=== PATIENT | female | born 1995 | race Caucasian/White ===

== ENCOUNTER 2019-06-21 10:30 | Outpatient (RCR) | payer OTHER, SELFPAY ==
[2019-06-21 12:49] LABS: Hematocrit 34.4 % (37.0-47.0); Hemoglobin 11.1 g/dL (12.0-15.0)
[2019-06-21 13:06] LABS: Glucose 1 Hour PP 50gm Dose 106 mg/dL
[2019-06-21 13:48] LABS: HIV 1/2 Ab P24 Ag Result Negative (Negative)
[2019-06-21] MEDS: RHO(D) IMMUNE GLOBULIN 300 MCG SYRINGE IM (17:28)
[2019-06-22 08:16] LABS: Rapid Plasma Reagin Non-Reactive (NonReactive)
== END 2019-09-19 23:59 | disposition home or self-care (01) ==
LOC: ANHLAB 10:30
PROVIDERS: Visit Provider Obstetrics & Gynecology
DX: Z36.89 Encounter for other specified antenatal screening (principal); Z29.13 Encounter for prophylactic Rho(D) immune globulin; O36.0990 Maternal care for other rhesus isoimmunization, unspecified trimester, not applicable or unspecified; Z3A.00 Weeks of gestation of pregnancy not specified
CPT/HCPCS: 36415; 36430; 82947; 85014; 85018; 86592; 86703; 90384; 96372; G0432; J2790

== ENCOUNTER 2019-09-03 06:12 | Inpatient (IN) | payer OTHER, SELFPAY ==
[2019-09-03] VITALS (85 sets, daily range): BP systolic 75–158; BP diastolic 33–129; PULSE 56–191; RESP 16–18; TEMP 36.3–37.5; O2SAT 94–100; BMI 29.5
[2019-09-03 07:15] LABS: Basophils Percent Auto 0.2 % (0.2-1.2); Eosinophils Absolute Auto 0.1 K/mm3 (0-0.3); Eosinophils Percent Auto 0.7 % (0-4.4); Hematocrit 31.7 % (37.0-47.0); Immature Granulocyte Absolute 0.04 K/mm3 (0.00-0.031); Immature Granulocyte Percent A 0.4 % (0-0.5); Lymphocytes Absolute Auto 1.62 K/mm3 (0.9-3.2); Mean Corpuscular HGB Conc 31.5 g/dl (32-36); Mean Corpuscular Hemoglobin 26.4 pg (26-34); Mean Corpuscular Volume 83.6 fl (80-100); Mean Platelet Volume 10.7 fl (7.4-10.4); Monocytes Absolute Auto 0.6 K/mm3 (0.1-0.6); Monocytes Percent Auto 6.5 % (2.6-8.5); Neutrophils Absolute Auto 6.7 K/mm3 (1.3-6.7); Neutrophils Percent Auto 74.2 % (45.5-73.1); Platelet Count Result 311 k/mm3 (150-375); Red Blood Count 3.79 M/mm3 (4.2-5.4); Red Cell Distribution Width 13.2 % (11.5-14.5)
[2019-09-03] MEDS: LACTATED RINGERS 1,000 ML 125 ML IV CONT ×2 (07:20→11:57)
--- NOTE | 2019-09-03 07:32 | LDADM ---
This patient, Jennifer Yanez, was admitted to Labor/Delivery/Recovery 104 on 09/03/19 at 06:12. Plans for labor, pain management and were discussed with patient. Patient/family oriented to hospital policies and general routines including ID bracelet, bed and alarms, visiting hours, pain management, procedures, bathroom and other care routines, personal items, smoking policy, room service/diet and guest tray routines, infant security routines, and visiting hours. Patient/Family are encouraged to report perceived risks to care and to ask questions if they do not understand what they are told or what they should do. See OBIX for further documentation.
--- NOTE | 2019-09-03 07:49 | WPDOBADMIT ---
Obstetrics - Admit Note Admission Note: 23 y/o @ 39w2d here for elective induction of labor. VSS Contractions irregular FHR category 1 Cervix 2/50/-2 AROM small amount of clear odorless fluid Epidural if desired Anticipate record reviewed. No pertinent additions to the history and/or any subsequent changes in the physical findings that are not consistent with the expected course of the were found. Additions to the history and/or subsequent changes in the physical findings follow. None.
[2019-09-03 10:13] LABS: Rapid Plasma Reagin Non-Reactive (NonReactive)
--- NOTE | 2019-09-03 11:52 | P.PNAN_ITS ---
Anes - Eval Pre Procedure Procedure: Labor epidural Date/Time: 09/03/19 11:52 Pre Op Diagnosis: Induction Patient Data Age: 23 Gender: F Height: 1.75 m Weight: 90.5 kg Last Vital Signs Temp 36.3 C L 09/03/19 10:00 Pulse 124 H 09/03/19 11:01 BP 131/83 09/03/19 11:01 Allergies Allergy/AdvReac Type Severity Reaction Status Date / Time No Known Allergies Allergy Unknown Unverified 08/21/19 13:27 Home Medications Medication Instructions Recorded Confirmed Type PNV cmb#95-ferrous fumarate-FA 1 tablet PO DAILY 08/21/19 08/21/19 History [] escitalopram oxalate 5 mg PO DAILY 08/21/19 08/21/19 History Laboratory Tests 09/03/19 09/03/19 09/03/19 07:06 07:06 07:06 WBC 9.0 K/mm3 K/mm3 (4.5-10.0) RBC 3.79 M/mm3 L M/mm3 (4.2-5.4) Hgb 10.0 g/dL L g/dL (12.0-15.0) Hct 31.7 % L % (37.0-47.0) MCV 83.6 fl fl (80-100) MCH 26.4 pg pg (26-34) MCHC 31.5 g/dl L g/dl (32-36) RDW 13.2 % % (11.5-14.5) Plt Count 311 k/mm3 k/mm3 (150-375) MPV 10.7 fl H fl (7.4-10.4) Immature Gran % (Auto) 0.4 % % (0-0.5) Neut % (Auto) 74.2 % H % (45.5-73.1) Lymph % (Auto) 18.0 % L % (18.3-44.2) Rowan % (Auto) 6.5 % % (2.6-8.5) Eos % (Auto) 0.7 % % (0-4.4) Baso % (Auto) 0.2 % % (0.2-1.2) Lymph # (Auto) 1.62 K/mm3 K/mm3 (0.9-3.2) Rowan # (Auto) 0.6 K/mm3 K/mm3 (0.1-0.6) Eos # (Auto) 0.1 K/mm3 K/mm3 (0-0.3) Baso # (Auto) 0.0 K/mm3 K/mm3 (0.0-0.1) Abs Immat Gran (auto) 0.04 K/mm3 H K/mm3 (0.00-0.031) Absolute Neuts (auto) 6.7 K/mm3 K/mm3 (1.3-6.7) Absolute Nucleated RBC 0.0 K/mm3 K/mm3 (0.0-0.012) Nucleated RBC % 0.0 % % (0.0-0.2) RPR Non-reactive (NonReactive) Blood Type O Negative Antibody Screen Negative Patient hx anesthesia problems: none Family hx anesthesia problems: none [facility] Family History Family History (Updated 08/21/19 @ 13:32 by Marcela Uribe RN) Other Cancer Grandparent Cancer Brain cancer Sibling Endometriosis Social History Social History Smoking status: Never smoker Substance use: never Spiritual care concerns: No Exam Day of Procedure 09/03/19 11:52
--- NOTE | 2019-09-03 15:08 | P.PCNOB_ITS ---
OB - Delivery Note Procedure Delivery date: 09/03/19 Intrapartal events: None Induction method: AROM and per pitocin protocol Delivery monitor: external FHT Route of delivery: Episiotomy description: None Laceration description: None Estimated blood loss (mL): 20 Anesthesia type: Epidural [place] Baby Date of : 09/03/19 Time of : 14:54 Weeks of gestation at delivery: 39 presentation: vertex position: Left Occiput Anterior Placenta delivery description: Spontaneous cord vessel description: 3 Vessels, Nuchal Cord and Reduced
[2019-09-03] MEDS: IBUPROFEN 600 MG TABLET PO ×2 (17:00→23:45)
[2019-09-03] MEDS: WITCH HAZEL 40 PADS 1 PAD TOPICAL (17:00)
[2019-09-03] MEDS: BENZOCAINE 20% AER SPR (*SP) 56 GM CAN 1 SPRAY TOPICAL (17:01)
--- NOTE | 2019-09-03 17:05 | PC.NURSE ---
Patient transferred to post room #284 via wheelchair. Support person present. Oriented to unit, room, information board, rooming in, admission packet and security measures. Patient verbalizes understanding.
[2019-09-03] MEDS: ACETAMINOPHEN 325 MG TABLET 650 MG PO (19:36)
[2019-09-04] MEDS: ACETAMINOPHEN 325 MG TABLET 650 MG PO ×2 (04:38→12:17)
[2019-09-04 06:11] LABS: Hematocrit 27.6 % (37.0-47.0); Hemoglobin 8.7 g/dL (12.0-15.0)
--- NOTE | 2019-09-04 08:01 | WPDANLDPN2 ---
Anes-Prog Note L&D Date/Time: 09/04/19 08:01 Comfortable throughout: labor and delivery Neuraxial method: epidural Epidural/Spinal procedure site: clean & non-tender Neuro status: Neuro function grossly intact. Cardiovascular status: normal Respiratory status: normal Airway patency: baseline Mental status: baseline Post-Op hydration status: normal Vital Signs: Last Vital Signs Temp 98.0 F 09/03/19 19:30 Pulse 105 H 09/03/19 19:30 Resp 16 09/03/19 19:30 BP 114/68 09/03/19 19:30 Pulse Ox 99 09/03/19 18:55 Post-procedural complaints: none Patient feedback: Patient satisfied with anesthetic care.
--- NOTE | 2019-09-04 08:09 | PM.OBPNVD ---
OB - PN: Subj Subjective Date/time seen: 09/04/19 08:09 Patient comments: no complaints, pain well controlled, incisional pain, tolerating diet and flatus present OB - PN: Obj Data Labs CBC & Chem 7: 09/04/19 04:31 Labs: Laboratory Results - last 24 hr 09/03/19 09/03/19 09/04/19 07:06 07:06 04:31 Hgb 8.7 L Hct 27.6 L RPR Non-reactive Blood Type O Negative Antibody Screen Negative 09/04/19 04:31 Hgb Hct RPR Blood Type O Negative Antibody Screen OB - PN A/P Plan day: 1 Plan: routine care Comments: No problems, routine care Time Spent With Patient Time: Total time spent is greater than 50% in coordination of care (as documented) at patient's floor/unit and/or counseling patient: Exam Const: General: comfortable, no acute distress and alert Resp: Effort & Inspection: normal respiratory effort Auscultation: no crackles, no rales and no rhonchi Cardio: Rate: regular rate Heart sounds: no click, no murmurs and no rubs GI: Inspection: non-distended GI Palp: No Tenderness to palpation present (GI) Auscultation: normal bowel sounds Other: Incision - CDI Extrem: General: normal to inspection, no pedal edema and no calf tenderness
[2019-09-04 08:15] VITALS: BP 122/72; PULSE 68; RESP 16; TEMP 37.1; O2SAT 100
[2019-09-04] MEDS: POLYSACCHARIDE IRON COMPLEX 150 MG CAPSULE PO (09:22)
[2019-09-04] MEDS: DOCUSATE SODIUM 100 MG CAPSULE PO (09:22)
[2019-09-04] MEDS: IBUPROFEN 600 MG TABLET PO (09:23)
[2019-09-04] MEDS: RHO(D) IMMUNE GLOBULIN 300 MCG SYRINGE IM (11:11)
--- NOTE | 2019-09-04 11:42 | PC.NURSE ---
Patient instructed on viewing the discharge video Mother & Baby Care, The First Two Weeks . Patient was given the opportunity and encouraged to ask questions. Patient verbalized understanding of information shared and has been given the mother/baby guide for home reference.
--- NOTE | 2019-09-04 13:29 | P.DS_ITS ---
OB - DS: Summary OB Procedures : None OB Procedures Intrapartum: Spontaneous Vag Delivery OB Procedures: : None Time Spent with Patient Time attestation: Total time spent providing and/or coordinating discharge services: DS: Data Data Completed and Pending Labs on day of discharge: Labs from last 24 hours 09/04/19 09/04/19 04:31 04:31 Hgb 8.7 L Hct 27.6 L Blood Type O Negative Antibody Screen Negative Screen Negative Baby's Blood Type B pos Baby's ACOSTA Negative Doses of RhIg Required 1 Discharge Plan Discharge Discharging Clinician: Lisa Alavres Patient Disposition: Home, Self-Care Activity: pelvic rest Diet: regular Discharge Instructions: Education: Mom and Baby Guide Given to: Mother Follow-Up: Call your delivering provider's office for an appointment to be seen in: 4 Weeks Mom and baby [facility] the follow-up appointment. Appointment Date/Time: September 05, 2019 at 9:00 am What to expect at your follow-up visit: Physical Assessment Call [phone] if you are unable to keep your appointment time. BREAST CARE: 1. Wear a snug supportive bra. 2. For engorgement discomfort: Bottle Feeding: A. May apply ice packs EPISIOTOMY/PERINEAL CARE: 1. Until bleeding stops, use your alma bottle after urinating 2. Change your pad frequently throughout the day 3. No tub baths until seen by your physician - You may shower ACTIVITY: 1. Rest as much as possible. 2. Do not exercise or lift anything heavier than your baby (such as laundry or other children.) 3. Avoid stairs or driving as much as possible. 4. Do not put anything into the vagina. No douching, tampons, or sexual activity until seen by physician. NOTIFY PHYSICIAN IF YOU HAVE ANY QUESTIONS OR IF ANY OF THE FOLLOWING SYMPTOMS OCCUR: 1. If your vaginal bleeding becomes foul smelling. 2. If your vaginal bleeding becomes more heavy than a period or if your bleeding changes from pink to bright red. However, you may pass an occasional walnut- sized clot once or twice for the first week . 3. If you experience a sharp, shooting pain in you calves. 4. If you discover a hard, reddened area on your breast or if you experience flu-like symptoms. DIET: 1. Eat regular, well-balanced meals. 2. Drink plenty of fluids daily. If , drink to thirst. Patient Instructions: Antibiotic Form Stand Alone Forms: General Discharge Information Follow-up/Referrals: Anabella Shepard CNM [Certified Nurse Quality Measurement Specialist] - Discharge Medications: New ibuprofen 600 mg Tablet 600 mg PO Q6H PRN (Reason: Cramping) RF: 0 Continued escitalopram oxalate 5 mg Tablet 5 mg PO DAILY RF: 0 Discontinued PNV cmb#95-ferrous fumarate-FA [] 28 mg iron- 800 mcg Tablet 1 tablet PO DAILY RF: 0 Date of admission: 09/03/19 06:12 Primary Care Provider: PHYSICIAN,DITCHING MACHINE OPERATOR Admitting Provider: Lisa Alvares Attending physician on admission: Lisa Alvares
== END 2019-09-04 16:55 | disposition home or self-care (01) | DRG 560 ==
LOC: ANHLDR 06:20 → ANHOB2 17:27
PROVIDERS: Advanced Practice Midwife; Admitting Provider Obstetrics & Gynecology; Visit Provider Obstetrics & Gynecology
DX: O69.81X0 Labor and delivery complicated by cord around neck, without compression, not applicable or unspecified (principal); Z37.0 Single live birth; Z3A.39 39 weeks gestation of pregnancy; Z23 Encounter for immunization
CPT/HCPCS: 36415; 85014; 85018; 85025; 86592; 86850; 86900; 86901; 90384; 90471; 90686; A9270; G0008; J2590; J2790; J2795; J7120

== ENCOUNTER 2022-09-09 12:02 | Emergency (ER) | payer OTHER, SELFPAY ==
--- NOTE | 2022-09-09 12:06 | ED.URI ---
HPI - URI/Sore Throat General Chief Complaint: Upper Respiratory Infection Stated Complaint: Sore Throat Source: patient and RN notes reviewed History of Present Illness HPI Narrative: 26-year-old female presents to urgent care with complaints of sore throat and bilateral ear pain x2 days. Patient denies any fevers chills, chest pain, shortness of breath, or vomiting. Patient has been taking ibuprofen at home with moderate relief. Some parts of this dictation were generated by voice recognition software and may contain typographical and/or grammatical inaccuracies. Related Data Home Medications Medication Instructions Recorded Confirmed escitalopram oxalate 5 mg tablet 5 mg PO DAILY 08/21/19 09/09/22 norethindrone 1 mg-ethinyl 1 tablet PO DAILY 09/09/22 09/09/22 estradiol 20 mcg (21)-iron 75 mg (7) tablet (08/20 (28)) Allergies Allergy/AdvReac Type Severity Reaction Status Date / Time No Known Allergies Allergy Unknown Verified 09/09/22 12:12 Review of Systems Review of Systems: CONSTITUTIONAL: Denies fever, chills, or sweats. EYES: Denies visual changes, redness, or discharge. ENT: Reports otalgia and sore throat CARDIOVASCULAR: Denies chest pain, palpitations, or edema. RESPIRATORY: Denies cough or dyspnea. GASTROINTESTINAL: Denies abdominal pain, nausea, vomiting, or diarrhea. GENITOURINARY: Denies dysuria or hematuria. SKIN: Denies rash or itching. MUSCULOSKELETAL: Denies back pain, joint pain, or myalgia. NEUROLOGIC: Denies headache, numbness, or weakness. Psychiatric: Denies anxiety or any suicidal or homicidal thoughts PMFSH Family History Family History (Updated 08/21/19 @ 13:32 by Marcela Uribe RN) Other Cancer Grandparent Cancer Brain cancer Sibling Endometriosis Social History Social History Smoking status: Never smoker Substance use: never Spiritual care concerns: No Comments At the time of my signature, I reviewed and agree with the nursing past medical, surgical, social, and family history. There is no relevant family history pertinent to the patient complaint. Exam Narrative: GENERAL: This is a well-nourished, well-developed patient, in no apparent distress. HEAD: normocephalic, atraumatic. EYES: PERRL. Sclera clear/white. Vision is grossly intact. EARS: External ears normal, auditory canals clear and without drainage, TMs normal without perforation. Hearing grossly intact. NOSE: External nose normal with no obvious nasal discharge, nares without redness, no rhinorrhea. THROAT: Mucous membranes moist, posterior pharynx erythemic.. NECK: Neck supple, non-tender without lymphadenopathy, masses or thyromegaly. CARDIOVASCULAR: Regular rate and rhythm without murmurs, gallops, or rubs. RESPIRATORY: Clear to auscultation. Breath sounds equal bilaterally. No wheezes, rales, or rhonchi. GASTROINTESTINAL: Abdomen soft, non-tender, nondistended. Bowel sounds are active. No hepato-splenomegaly, or palpable masses. No guarding. SKIN: warm, intact with no suspicious lesions or rash, good texture and turgor. NEURO: awake, alert, and oriented to person, place and time. There were no obvious focal neurologic abnormalities. Course Course Level of Care: Express Care Visit Vital Signs Vital signs: Vital Signs Oxygen Delivery Room Air 09/09/22 12:07 Temperature 97.9 F 09/09/22 12:10 Pulse Rate 83 09/09/22 12:10 Respiratory Rate 16 09/09/22 12:10 Blood Pressure 127/81 09/09/22 12:10 Pulse Oximetry 99 09/09/22 12:10 Oxygen Delivery Room Air 09/09/22 12:10 Reviewed MDM - URI/Sore Throat MDM Narrative Medical decision making narrative: After 24 hours on antibiotics throw tooth brush away and start using a new one. Do not share drinks. Take Motrin alternating with Tylenol for pain and fever alternating every 4 hours. Increase fluids, avoid caffeine. Follow up with Primary provider if not getting better this week Differenti
[2022-09-09 12:10] VITALS: BP 127/81; PULSE 83; RESP 16; TEMP 36.6; O2SAT 99
== END 2022-09-09 12:35 | disposition home or self-care (01) ==
PROVIDERS: Emergency Provider Nurse Practitioner Family; PCP Family Medicine
DX: J02.0 Streptococcal pharyngitis (principal)
CPT/HCPCS: 87880; 99213; G0463

== ENCOUNTER 2024-07-02 00:15 | Day surgery (SDC) | payer OTHER, SELFPAY ==
[2024-06-20 14:38] VITALS: BMI 32.1
--- NOTE | 2024-06-20 15:00 | PC.NURSE ---
Report to the Outpatient Waiting Room, entrance under the green pavilion located off [facility], at time __0600____ on date __07/02/24 . Planned Procedure Time: _0730 .? Time changes happen often and if your time is changed the preop area will call you the afternoon before. - You and your visitor will be asked to self-screen and do not enter if you have any COVID symptoms. Please call surgeon if you need to reschedule. - A mask is optional within the hospital at this time. Patients may have clear liquids (water, carbonated beverages, clear teas, apple juice) until 3 hours prior to surgery with a maximum of 20 ounces. - No food from midnight until time of surgery and no smoking. This includes no chewing gum, candy or mints. Take only the following medications with a SIP of water on the morning of surgery: __ESCITALOPRAM DO NOT STOP ANY OF YOUR OTHER PRESCRIPTION MEDICATIONS PRIOR TO SURGERY EXCEPT THE FOLLOWING Medications to discontinue per physician MOTRIN Date to take last dose____06/25/24 Please no make-up, nail sinhala, hairspray, perfume, deodorant, or body powder the day of surgery.? No jewelry (including any body piercings) or valuables the day of surgery, leave them at home.? Please take a shower or bath the night before, or the morning of, surgery with an antibacterial soap.? Wear comfortable, loose fitting clothing.? - Jewelry must be removed prior to entering the operating room.? Rings and piercings that are not removed may be cut off. - The hospital will not accept responsibility for valuables.? - Please leave all valuables, including medications, at home the day of surgery. If you are going home after surgery, a licensed entry level truck driver must drive you home.? - NO public transportation without another adult if you receive anesthesia. - We recommend that an adult stay with you for 24 hours following discharge. - We also recommend that you do not drive, make important decision, drink alcoholic beverages, or take any drugs that were not prescribed by your health care provider for at least 24 hours after your discharge time. Follow any additional instructions given to you from your surgeon. Telephone instructions given to _XIOMARA and asked if any additional questions and then verbalized understanding. Patient advised to call surgeon office or pre surgery nurse liaison [phone] if any additional questions.
[2024-07-02] VITALS (9 sets, daily range): BP systolic 97–141; BP diastolic 50–80; PULSE 66–107; RESP 10–20; TEMP 36.1–36.4; O2SAT 98–100
[2024-07-02 06:15] LABS: BEDSIDEPREGUCG Negative (Negative)
[2024-07-02] MEDS: ACETAMINOPHEN 500 MG TABLET 1000 MG PO (06:20)
[2024-07-02] MEDS: LACTATED RINGERS 1,000 ML 30 ML IV CONT (06:25)
[2024-07-02] MEDS: KETOROLAC 15 MG/ML VIAL (*BKC) IV PUSH (06:30)
--- NOTE | 2024-07-02 07:12 | WPDHPUPDATE1 ---
History and Physical Update Update Date/Time: 07/02/24 07:12 History and Physical has been reviewed, including an updated exam of the patient. There are NO changes in the patient's condition. Risks, benefits, and alternatives have been discussed and questions answered. Patient agrees to proceed with procedure.
--- NOTE | 2024-07-02 07:12 | PM.IMHP ---
H&P: HPI History of Present Illness Date/Time: 07/02/24 07:12 Chief Complaint: desires sterilization Narrative: Patient is a 28 year old female who presents for laparoscopic bilateral salpingectomy. She does not desire future childbearing and has opted for permanent sterilization after discussion of alternative options, risks and benefits. She signed her state consent forms over 1 month ago. She denies nausea, vomiting, diarrhea, dysuria, or abdominal pain. Review of Systems Review of Systems: All systems reviewed & are unremarkable except as noted in HPI and below PMFSH Past Medical History Medical History Anxiety Depression Family History Family History Other Cancer Grandparent Cancer Brain cancer Sibling Endometriosis Social History Social History Smoking status: Never smoker Alcohol intake: never Substance use: never Substance use type: does not use Living arrangements: with family Spiritual care concerns: No Meds Home Medications and Allergies Home Medications Medication Instructions Recorded Confirmed Type escitalopram oxalate 5 mg tablet 20 mg PO DAILY 08/21/19 07/02/24 History ibuprofen 600 mg tablet 600 mg PO Q6H PRN Cramping 09/04/19 07/02/24 Rx Allergies Allergy/AdvReac Type Severity Reaction Status Date / Time No Known Allergies Allergy Unknown Verified 07/02/24 06:11 Vital Signs Vital Signs - 24 hr 07/02/24 06:00 Temperature 97.0 F L Pulse Rate 95 Respiratory Rate 18 Blood Pressure 141/80 H Pulse Oximetry 100 Oxygen Delivery Room Air Exam Const: General: comfortable and no acute distress HENMT: Mouth: Yes moist mucous membranes Eyes: General: appearance normal, both eyes and all related structures Resp: Effort & Inspection: normal respiratory effort Cardio: Rate: regular rate Skin: General skin exam: normal color Extrem: General: normal to inspection Psych: Mental Status: mental status grossly normal Assessment and Plan Assessment and plan (1) Encounter for sterilization: Code(s): Z30.2 - Encounter for sterilization Status: Acute Assessment and Plan: - patient does not desire future childbearing - declines alternative options as previously discussed - risks, benefits, and alternatives discussed again today - will proceed with laparoscopic bilateral salpingectomy
--- NOTE | 2024-07-02 07:12 | WPDANESEPPF ---
Anes - Initial Pre Proc Eval Procedure: Operation Date: 07/02/24 07:30 Proposed Procedures p Laparoscopic Bilateral Salpingectomy - Russ Garcia MD Date/Time: 07/02/24 07:12 Surgeon: Russ Garcia MD Pre Op Diagnosis: requested sterilization Patient Data Age: 28 Gender: F Height: 1.77 m Weight: 105.7 kg Last Vital Signs Temp 36.1 C L 07/02/24 06:00 Pulse 95 07/02/24 06:00 Resp 18 07/02/24 06:00 BP 141/80 H 07/02/24 06:00 Pulse Ox 100 07/02/24 06:00 O2 Del Method Room Air 07/02/24 06:00 Allergies Allergy/AdvReac Type Severity Reaction Status Date / Time No Known Allergies Allergy Unknown Verified 07/02/24 06:11 Home Medications Medication Instructions Recorded Confirmed Type escitalopram oxalate 5 mg tablet 20 mg PO DAILY 08/21/19 07/02/24 History ibuprofen 600 mg tablet 600 mg PO Q6H PRN Cramping 09/04/19 07/02/24 Rx Laboratory Tests 07/02/24 06:12 POC Urine HCG, Qual Negative (Negative) Patient hx anesthesia problems: none Family hx anesthesia problems: none Results Review: All pre-operative results and documents have been reviewed as part of the pre-operative evaluation. [facility] Past Medical History Medical History (Updated 06/30/24 @ 13:49 by Dani Griffith DO) Anxiety Depression Family History Family History (Updated 08/21/19 @ 13:32 by Marcela Uribe RN) Other Cancer Grandparent Cancer Brain cancer Sibling Endometriosis Social History Social History Smoking status: Never smoker Alcohol intake: never Substance use: never Substance use type: does not use Living arrangements: with family Spiritual care concerns: No Anes - Eval Final PreProcedure Day of Procedure 07/02/24 07:12 Patient weight: obese Heart: regular rate and rhythm Lungs: clear to auscultation Airway: Mallampati scale class II Neurological: alert and oriented Last oral intake: >/= 8 hours ASA classification: II Emergent: no Anesthetic plan: proceed Anesthesia type and monitoring: general ETT and standard monitoring Results Review: All pre-operative results and documents have been reviewed as part of the pre-operative evaluation. Informed Consent: The patient's anesthetic plan and its attendant risks and benefits were discussed with the patient/family/POA. Questions were solicited and answers provided to the satisfaction of the patient/family/POA.
[2024-07-02] MEDS: LIDO 1%/EPINEPHRINE 1:100,000 20 ML VIAL 30 ML INFILTRATE (07:50)
--- NOTE | 2024-07-02 08:01 | W.PM.PROC2 ---
Procedure Note - Detailed Date of Procedure 07/02/24 Pre-op Diagnosis requested sterilization Post-op Diagnosis Same Procedure Performed laparoscopic bilateral salpingectomy Surgeon Russ Garcia MD Anesthesia General Indications desires permanent sterilization Findings normal appearing uterus, bilateral tubes and bilateral ovaries Description of Procedure With IV fluids infusing, the patient was taken to the operating room. The patient was placed in supine position. General anesthesia with endotracheal intubation was given. A time-out took place. The patient was placed in dorsal lithotomy position using Elias stirrups and she was prepped and draped in the usual sterile fashion. The bladder was drained using a red rubber catheter. A sterile speculum was placed vaginally, the anterior lip of the cervix was grasped with a single-tooth tenaculum and the acorn uterine manipulator was placed without difficulty. The speculum was removed. The surgeon's gloves were changed and attention was turned to the abdomen. A 5 mm incision was made in the umbilicus. Under direct visualization with the scope, the umbilical port was inserted without difficulty. Another two trocars were placed under direct visualization in the left upper and left lower quadrants. The patient was placed in Trendelenburg and inspection of the pelvis noted the above findings. Appropriate pictures were taken. Using the LigaSure device, a left salpingectomy was performed in the usual fashion. Care was taken to avoid the IP ligament. The salpingectomy went smoothly. The same procedure was repeated on the right side. The instruments were all removed from the abdomen and the CO2 gas was allowed to escape. The three skin incisions were reapproximated with 4-0 Polysorb in a subcuticular manner, followed by skin glue. The acorn manipulator and single tooth tenaculum was removed from the uterus and cervix, respectively. The tenaculum sites were hemostatic. All instruments were removed from the vagina. At the end of the case, instrument, sponge and needle counts were correct x 2. The patient was awakened from general anesthesia and was taken to PACU in stable condition. Estimated Blood Loss 5 Urine Output 200 Pathology Yes Complications No immediate complications Condition Stable Disposition Same day
--- NOTE | 2024-07-02 08:35 | SUR.PHASEI ---
0835: Simple mask removed.
== END 2024-07-02 09:45 | disposition home or self-care (01) ==
PROVIDERS: PCP Family Medicine; Visit Provider Obstetrics & Gynecology
PROC: (CPT 49320; principal; 2024-07-02 07:30)
DX: Z30.2 Encounter for sterilization (principal); N83.8 Other noninflammatory disorders of ovary, fallopian tube and broad ligament; F41.9 Anxiety disorder, unspecified; F32.A Depression, unspecified; E66.9 Obesity, unspecified; Z68.33 Body mass index [BMI] 33.0-33.9, adult
CPT/HCPCS: 58661; 88302; A9270; J1100; J1885; J2003; J2004; J2250; J2405; J2704; J3010; J7030; J7120

== ENCOUNTER 2025-03-07 14:58 | Emergency (ER) | payer OTHER, SELFPAY ==
--- OUTSIDE RECORDS SUMMARY | 2025-03-07 15:01 | XMS_ITS ---
Author Organization [facility] Address [address] [place] [address] Phone Care Team Providers Care Biodiesel Production Technician Name Role Phone Provider, None Primary Care Provider Unavailabl e [facility] Status:Enrolled (Active) Start date:09/19/2024 Enrollment date:09/19/2024 Related social drivers of health:Social Connections, Alcohol Use, Tobacco Use, Financial Resource Strain, Depression, Stress, Physical Activity, Food Insecurity, Transportation Needs, Housing Stability, Utilities Continued Care and Services Coordination
--- OUTSIDE RECORDS SUMMARY | 2025-03-07 15:01 | XMS_ITS | Clinical Summary ---
Author Organization [facility] Address [address] [place] [address] Phone Care Team Providers Care Second Worker Name Role Phone Provider, None Primary Care Provider Unavailabl e Allergies No known active allergies Medications metoclopramide (REGLAN) 10 MG Tablet Take 1 Tab by mouth 4 times daily as needed for Nausea. 10 Tab 7 Active escitalopram (LEXAPRO) 10 MG Tablet Take 10 mg by mouth daily. 4 Active ondansetron (ZOFRAN-ODT) 4 MG TABLET DISPERSIBLE Take 1 Tablet by mouth every 6 hours as needed for Nausea - 1st line. 30 Tablet 4 Active HYDROcodone-acetam inophen (NORCO) 5-325 MG TabletIndications: Acute cholecystitis Take 1 Tablet by mouth every 8 hours as needed for Moderate or more severe pain. 15 Tablet 4 Active Active Problems Problem Noted Date Diagnosed Date BMI 33.0-33.9,adult 07/19/2024 Resolved Problems Problem Noted Date Diagnosed Date Resolved Date Acute cholecystitis 07/17/2024 07/19/20 24 Social History Tobacco Use Types Packs/Day Years Used Date Smoking Tobacco: Former Alcohol Use Standard Drinks/Week Comments No 0 (1 standard drink = 0.6 oz pur e alcohol) [facility] Utilities Answer Date Recorded In the past 12 months has e electric, gas, oil, or water company threatened to shut off services in your home? Patient declined 07/17/2024 Social Connection and Isolation Panel Answer Date Recorded In a typical week, how many times do you talk on the phone with family, friends, or neighbors? Patient declined 07/17/2024 How often do you get togethe r with friends or relatives? Patient declined 07/17/2024 How often do you attend yazidi or yarsani serv ices? Patient declined 07/17/2024 Do you belong to any clubs o r organizations such as yazidi groups, unions, fraternal or athletic groups, or school groups? Patient declined 07/17/2024 How often do you attend meet ings of the clubs or organizations you belong to? Patient declined 07/17/2024 Are you , , di vorced, , never , or living with a partner? Patient declined 07/17/2024 AUDIT-C Answer Date Recorded Q1: How often do you have a drink containing alc ohol? Patient declined 07/17/2024 Q2: How many drinks containi ng alcohol do you have on a typical day when you are drinking? Patient declined 07/17/2024 Q3: How often do you have si x or more drinks on one occasion? Patient declined 07/17/2024 Overall Financial Resource Strain (CARDIA) Answe r Date Recorded How hard is it for you to pa y for the very basics like food, housing, medical care, and heating? Patient declined 07/17/2024 [facility] - Occupational Stress Questionnaire Answer Date Recorded Do you feel stress - tense, restless, nervous, or anxious, or unable to sleep at night because your mind is troubled all the time - these days? Patient declined 07/17/2024 Exercise Vital Sign Answer Date Recorde d On average, how many days pe r week do you engage in moderate to strenuous exercise (like a brisk walk)? Patient declined On average, how many minutes do you engage in exercise at this level? Patient declined 07/17/2024 Hunger Vital Sign Answer Date Recorded Within the past 12 months, y ou worried that your food would run out before you got the money to buy more. Patient declined Within the past 12 months, t he food you bought just didn't last and you didn't have money to get more. Patient declined PRAPARE - Transportation Answer Date Re corded In the past 12 months, has l ack of transportation kept you from medical appointments or from getting medications? Patient declined 07/17/2024 In the past 12 months, has l ack of transportation kept you from meetings, work, or from getting things needed for daily living? Patient declined 07/17/2024 Housing Stability Vital Sign Answer [place] e Recorded In the last 12 months, was t here a time when you were not able to pay the mortgage or rent on time? Patient declined 07/17/20 24 In the past 12 months, how m any times have you moved where you were living? 1 07/17/2024 At any time in the past 12 m [facility], were you homeless or living in a care home (including now)? Patient declined 07/17/2024 Comments Unknown Sex and Gender Information Value Date Recorded Sex Assigned at Not on file Legal Sex Female 9:49 PM CDT Gender Identity Not on file Sexual Orientation Not on file Last Filed Vital Signs Vital Sign Reading Time Taken Comments Blood Pressure 114/64 07/19/2024 7:22 AM EQUIPMENT MECHANIC Pulse 81 07/19/2024 7:22 AM EQUIPMENT MECHANIC Temperature 36.4 C (97.6 F) 07/19/2024 7:22 AM EQUIPMENT MECHANIC Respiratory Rate 16 07/19/2024 7:22 AM EQUIPMENT MECHANIC Oxygen Saturation 99% 07/19/2024 7:22 AM EQUIPMENT MECHANIC Inhaled Oxygen Concentration - - Weight 104.3 kg (229 lb 15 oz) 07/17/2024 8:49 A M EQUIPMENT MECHANIC Height 175.3 cm (5' 9) 07/17/2024 8:49 AM EQUIPMENT MECHANIC Body Mass Index 33.96 07/17/2024 8:49 AM EQUIPMENT MECHANIC Plan of Treatment Health Maintenance Due Date Last Done Comments Hepatitis C Virus (HCV) Screening 1995 Pap Smear 12/19/2016 SARS-COV-2 Immunization ( season) 2024 Influenza Immunization (#1) 04/01/202507/01, 05/29/2008, 05/12/2006, Additional history exists Respiratory Syncytial Virus (RSV) Immunization (Adult) (1 - 1-dose 75+ series) 12/19/2070 Hepatitis B Immunization Completed 996, 03/08/1996, 1995 Meningococcal Immunization (ACWY) Aged Out 03/13/2007 No longer eligible based on patient's age to complete this topic Human Papillomavirus (HPV) Immunization Completed 04/13/2011, 11/21/2009, 03/13/2007 TdaP Immunization Completed 10/21/2017, 08/24/2006 Pneumococcal Immunization Combined Aged Out No longer eligible based on patient's age to complete this topic Rotavirus Immunization Aged Out No lo nger eligible based on patient's age to complete this topic Insurance [place]ID [place] Advance Directives * Full Code (Latest Code Status on File) Date Activated Date Inactivated Comments 07/17/2024 3:25 PM CPR-Full Judie tment: FULL ARREST: Attempt Resuscitation/CPR wit intubation and mechanical ventilation. PRE-ARREST: Use entire range of life support measures to stabilize the patient. Care Teams Second Worker Relationship Specialty Start Date End Date Provider, None [place] PCP - General 04/12/17
[2025-03-07 15:03] VITALS: BP 110/74; PULSE 77; RESP 16; TEMP 36.7; O2SAT 100
--- NOTE | 2025-03-07 15:50 | ED.SKABFB ---
HPI - Skin/Abscess/Foreign Bdy General Chief complaint: Skin/Abscess/Foreign Body Stated complaint: Rash Source: patient and RN notes reviewed Mode of arrival: ambulatory Limitations: no limitations History of Present Illness HPI narrative: 29-year-old female presents to the [facility] complaining of rash and itchiness to her left upper back for the last 4 days. Patient denies any pain, fevers, body aches, chills,. Patient says she noticed it when she has been assured on she felt some bumps on the top of her back. Patient does have a history of chickenpox. Patient denies any burning sensation or numbness or tingling. Related Data Home Medications ?Medication ?Instructions ?Recorded ?Confirmed ?Last Taken ?Type escitalopram oxalate 5 mg tablet 20 mg PO DAILY 08/21/19 07/02/24 08/20/19 21:00 History Allergies Allergy/AdvReac Type Severity Reaction Status Date / Time No Known Allergies Allergy Unknown Verified 03/07/25 15:11 Review of Systems Review of Systems: CONSTITUTIONAL: Denies fever, chills, or sweats. EYES: Denies visual changes, redness, or discharge. ENT: Denies rhinorrhea, congestion, sore throat, or otalgia. CARDIOVASCULAR: Denies chest pain, palpitations, or edema. RESPIRATORY: Denies cough or dyspnea. GASTROINTESTINAL: Denies abdominal pain, nausea, vomiting, or diarrhea. GENITOURINARY: Denies dysuria or hematuria. SKIN: Positive for rash and itching MUSCULOSKELETAL: Denies back pain, joint pain, or myalgia. NEUROLOGIC: Denies headache, numbness, or weakness. PSYCHIATRIC: Denies anxiety or depression. All other systems reviewed are negative, except as documented in HPI. [facility] Past Medical History Medical History Encounter for sterilization Depression Anxiety Surgical History Surgical History Status post bilateral salpingectomy History of cholecystectomy 2023 History of ankle surgery 2011 Family History Family History Other Cancer Grandparent Cancer Brain cancer Sibling Endometriosis Depression Father Cancer Mother Depression Anxiety Social History Social History (Reviewed 03/07/25 @ 15:51 by NICOLAS Salgado Smoking status: Never smoker Alcohol intake: never Substance use: never Substance use type: does not use Living arrangements: with family Spiritual care concerns: No Comments At the time of my signature, I reviewed and agree with the nursing past medical, surgical, social, and family history. There is no relevant family history pertinent to the patient complaint. Exam Narrative: GENERAL: This is a well-nourished, well-developed adult, in no apparent distress. They are non ill-appearing, nontoxic appearing. HEAD: normocephalic, atraumatic. EYES: Sclera clear/white. Conjunctiva normal. Vision is grossly intact. Extraocular movements intact EARS: External ears normal, Hearing grossly intact. NOSE: External nose normal THROAT: Mucous membranes moist, NECK: Neck supple CARDIOVASCULAR: Regular rate and rhythm RESPIRATORY: Respiratory rate normal, respiratory effort nonlabored, no respiratory distress SKIN: Left upper back: There is a erythematous vesicular pruritic rash that is grouped to the left upper medial back near her neck. Some lesions are scabbed. Rashes nontender, no exudate, no area of fluctuance, no induration. NEURO: awake, alert, and oriented to person, place and time. There were no obvious focal neurologic abnormalities. EXTREMITIES: No joint tenderness, effusion, or edema noted. Course Course Emergency Course: Portions of this record may have been created with voice recognition software Level of Care: Express Care Visit Vital Signs Vital signs: Vital Signs Temperature 98.0 F 03/07/25 15:03 Pulse Rate 77 03/07/25 15:03 Respiratory Rate 16 03/07/25 15:03 Blood Pressure 110/74 03/07/25 15:03 Pulse Oximetry 100 03/07/25 15:03 Oxygen Delivery Room Air 03/07/25 15:03 Temperature 98.0 F 03/07/25 15:03 Pulse Rate 77 03/07/25 15:03 Respiratory Rate 16 03/07/25 15:03 Blood Pressure 110/74 03/07/25 15:03 Pulse Oximetry 100 03/07/25 15:03 Oxygen Delivery Room Air 03/07/25 15:03 Reviewed MDM - Skin/Abscess/Foreign Bdy MDM Narrative Medical decision making narrative: Herpes zoster cannot be excluded, the rash is unilateral however is nontender, no burning or pain. Patient reports that is pruritic. Symptoms persist in the last 4 days. Will try triamcinolone cream it is likely a contact dermatitis. Discussed physical exam findings. Advised supportive measures and signs/symptoms to go to the ER. Pt is appropriate for outpt treatment and f/u. Differential Diagnosis Differential diagnosis: Likely urticaria, herpes zoster, cellulitis, eczema and contact dermatitis Critical Care Time Critical Care Time Critical Care Time: No Discharge Plan Discharge Clinical Impression: Rash Patient Disposition: Home Condition: Stable Instructions: Acute Rash (ED) Additional Instructions: Use the triamcinolone cream as directed. You may use calamine lotion, camphor,, Benadryl cream as needed for itchiness symptoms. You may also take Zyrtec or Claritin as needed for allergy or itchiness symptoms. Follow instructions on the bottle. Follow-up PCP in 3-5 days. If you develop any worsening redness, swelling, discharge, fevers, breathing problems, or any other concerns please go to the ER immediately. Patient Language: Hebrew Prescriptions: New triamcinolone acetonide 0.5 % cream 1 applic topical BID 7 Days Qty: 15 0RF No Action benzoyl peroxide [Acne Control(benzoyl peroxide)] 10 % cleanser 1 applic topical .COMPLEX Qty: 142 0RF Rx Instructions: Wash face once or twice daily. hydrocortisone 2.5 % ointment 1 applic topical BID PRN (Reason: rash) Qty: 20 0RF Rx Instructions: Apply once or twice daily to affected areas as needed escitalopram oxalate 5 mg Tablet 20 mg PO DAILY tretinoin 0.025 % cream 1 applic topical QHS Qty: 20 5RF Rx Instructions: Apply to face once daily before bedtime or in the evening. Follow-up/Referrals: PHYSICIAN,BUCKET WASH OPERATOR [Primary Care Provider] - Time of Disposition: 15:39
== END 2025-03-07 15:45 | disposition home or self-care (01) ==
DX: R21 Rash and other nonspecific skin eruption (principal); F41.9 Anxiety disorder, unspecified; F32.A Depression, unspecified
CPT/HCPCS: 99213; G0463